=== PATIENT | female | born 2000 | race Hispanic/Latino ===

== ENCOUNTER 2022-02-04 20:00 | Emergency (ER) | payer MEDICAID, OTHER ==
[~2022-02-04] VITALS: Ht 154.9 cm; Wt 67.1 kg
[2022-02-04 20:53] LABS: APPEARANCE,URINE CLOUDY (CLEAR); BILIRUBIN,URINE NEGATIVE (NEGATIVE); COLOR,URINE LIGHT-YELLOW (YELLOW); GLUCOSE, URINE (UA) NEGATIVE (NEGATIVE); KETONES,URINE NEGATIVE (NEGATIVE); LEUKOCYTE ESTERASE ,URINE 500 Leu/uL (NEGATIVE); NITRATE,URINE NEGATIVE (NEGATIVE); OCCULT BLOOD,URINE NEGATIVE (NEGATIVE); PH,URINE 6.5 (5.0-8.0); PROTEIN,URINE NEGATIVE (NEGATIVE); UROBILINOGEN,URINE 0.2 mg/dL (0.2-1.0)
[2022-02-04 20:55] LABS: HCG,QUALITATIVE URINE NEGATIVE (NEGATIVE)
[2022-02-04 21:08] LABS: BACTERIA,URINE Moderate /HPF (None Seen); MUCUS,URINE Few LPF (None Seen); SQUAMOUS EPITHELIAL CELL,UR Moderate /HPF (0-2)
[2022-02-04 21:09] LABS: AMORPHOUS SEDIMENT,UR Moderate /LPF (None Seen)
[2022-02-04 23:21] VITALS: BP 120/52
[2022-02-04] MEDS ORDERED: CEPH500B PO (23:54)
== END 2022-02-05 | disposition home or self-care (01) ==
LOC: EDH 20:00
DX: N39.0 Urinary tract infection, site not specified (principal); M25.572 Pain in left ankle and joints of left foot; V49.49XA Driver injured in collision with other motor vehicles in traffic accident, initial encounter; Y93.9 Activity, unspecified; Y92.89 Other specified places as the place of occurrence of the external cause; Y99.8 Other external cause status
CPT/HCPCS: 73610; 81001; 81025; 87088

== ENCOUNTER 2022-06-11 20:45 | Emergency (ER) | payer OTHER ==
[~2022-06-11] VITALS: Ht 157.5 cm; Wt 68.9 kg
[~2022-06-11 20:45] MED LIST: CEPH500B PO
[2022-06-11] MEDS ORDERED: LORAZEPAM 2 MG/ML 1 ML VIAL IM ONE (22:00)
[2022-06-11 22:34] VITALS: BP 125/86
[2022-06-11] MEDS ORDERED: HYDR-3421 PO (23:03)
== END 2022-06-11 23:14 | disposition home or self-care (01) ==
LOC: EDH 20:45
DX: F41.9 Anxiety disorder, unspecified (principal); F41.0 Panic disorder [episodic paroxysmal anxiety]; Z88.8 Allergy status to other drugs, medicaments and biological substances; Z79.899 Other long term (current) drug therapy
CPT/HCPCS: 99283; 81025; 96372; J2060

== ENCOUNTER 2022-07-15 19:26 | Emergency (ER) | payer OTHER ==
[~2022-07-15] VITALS: Ht 157.5 cm; Wt 61.2 kg
[~2022-07-15 19:26] MED LIST changes: +HYDR-3421 PO
[2022-07-15 19:59] LABS: BASOPHILS % (AUTO) 0.3 % (0.0-5.0); EOSINOPHILS % (AUTO) 0.3 % (0.0-8.0); HEMATOCRIT 38.1 % (36-48); LYMPHOCYTES % (AUTO) 21.1 % (21.0-51.0); MEAN CORPUSCULAR HEMOGLOBIN 30.5 pg (27.0-33.0); MEAN CORPUSCULAR VOLUME 84.9 fL (79-99); MONOCYTES % (AUTO) 6.1 % (3.0-13.0); NEUTROPHILS % (AUTO) 71.9 % (40.0-77.0); PLATELET COUNT (AUTO) 315 K/uL (130-400); RED BLOOD CELL COUNT(AUTO) 4.49 MIL/uL (4.00-5.50); RED CELL DISTRIBUTION WIDTH 12.1 % (11.0-15.5)
[2022-07-15] MEDS ORDERED: 0.9%NACL 1000ML 1,000 ML IV ONE (20:30)
[2022-07-15] MEDS ORDERED: ONDANSETRON 4MG INJ IVP ONE (20:30)
[2022-07-15 20:37] LABS: APPEARANCE,URINE CLOUDY (CLEAR); BILIRUBIN,URINE NEGATIVE (NEGATIVE); COLOR,URINE YELLOW (YELLOW); GLUCOSE, URINE (UA) NEGATIVE (NEGATIVE); KETONES,URINE 60 mg/dL (NEGATIVE); LEUKOCYTE ESTERASE ,URINE 500 Leu/uL (NEGATIVE); NITRATE,URINE NEGATIVE (NEGATIVE); OCCULT BLOOD,URINE MODERATE (NEGATIVE); PROTEIN,URINE 30 mg/dL (NEGATIVE); UROBILINOGEN,URINE 0.2 mg/dL (0.2-1.0)
[2022-07-15 20:41] LABS: HCG,QUALITATIVE URINE NEGATIVE (NEGATIVE)
[2022-07-15 20:48] LABS: BACTERIA,URINE RARE /HPF (None Seen); MUCUS,URINE FEW LPF (None Seen); OTHER CASTS, URINE 1 /LPF (None Seen); RBC,URINE 26-50 /HPF (0-1); SQUAMOUS EPITHELIAL CELL,UR FEW /HPF (0-2); YEAST,URINE BUDDING FEW /HPF (None Seen)
[2022-07-15 20:59] LABS: ALBUMIN 3.9 g/dL (3.5-5.0); CREATININE 0.8 mg/dL (0.5-1.5); POTASSIUM 3.6 mmol/L (3.5-5.1); TOTAL PROTEIN, SERUM 8.5 g/dL (6.0-8.3)
[2022-07-15] MEDS ORDERED: CEFTRIAXONE 1G VIAL IVP ONE (21:00)
[2022-07-15] MEDS ORDERED: ACETAMINOPHEN 500 MG TABLET PO ONE (21:00)
[2022-07-15] MEDS ORDERED: ONDA4TAB10 PO (21:15)
[2022-07-15] MEDS ORDERED: SULF1TAB42 PO (21:15)
[2022-07-15 21:32] VITALS: BP 126/78
== END 2022-07-15 21:51 | disposition home or self-care (01) ==
LOC: EDH 19:36
DX: N39.0 Urinary tract infection, site not specified (principal); R11.0 Nausea; F41.9 Anxiety disorder, unspecified; Z20.822 Contact with and (suspected) exposure to COVID-19; Z88.8 Allergy status to other drugs, medicaments and biological substances; Z79.899 Other long term (current) drug therapy
CPT/HCPCS: 99284; 96374; 87635; 96361; 96375; 80053; 83690; 85025; 87088; 87880; 87804 ×2; 81001; 81025; 36415; C9803; J0696; J2405

== ENCOUNTER 2022-11-27 14:57 | Emergency (ER) | payer BC ==
[~2022-11-27] VITALS: Ht 157.5 cm; Wt 56.7 kg
[~2022-11-27 14:57] MED LIST changes: +ONDA4TAB10 PO; +SULF1TAB42 PO
[2022-11-27 14:58] VITALS: BP 118/54
[2022-11-27 15:27] LABS: APPEARANCE,URINE CLOUDY (CLEAR); BILIRUBIN,URINE NEGATIVE (NEGATIVE); COLOR,URINE LIGHT-YELLOW (YELLOW); GLUCOSE, URINE (UA) NEGATIVE (NEGATIVE); KETONES,URINE 10 mg/dL (NEGATIVE); LEUKOCYTE ESTERASE ,URINE 500 Leu/uL (NEGATIVE); NITRATE,URINE NEGATIVE (NEGATIVE); OCCULT BLOOD,URINE NEGATIVE (NEGATIVE); PROTEIN,URINE NEGATIVE (NEGATIVE); UROBILINOGEN,URINE 0.2 mg/dL (0.2-1.0)
[2022-11-27 15:31] LABS: HCG,QUALITATIVE URINE NEGATIVE (NEGATIVE)
[2022-11-27 15:33] LABS: BACTERIA,URINE MOD /HPF (None Seen); MUCUS,URINE RARE LPF (None Seen); OTHER CASTS, URINE 3 /LPF (None Seen); SQUAMOUS EPITHELIAL CELL,UR MOD /HPF (0-2)
[2022-11-27 15:47] LABS: BASOPHILS % (AUTO) 0.4 % (0.0-5.0); HEMATOCRIT 37.7 % (36-48); LYMPHOCYTES % (AUTO) 28.7 % (21.0-51.0); MEAN CORPUSCULAR HEMOGLOBIN 30.1 pg (27.0-33.0); MEAN CORPUSCULAR VOLUME 86.1 fL (79-99); MONOCYTES % (AUTO) 6.6 % (3.0-13.0); NEUTROPHILS % (AUTO) 61.1 % (40.0-77.0); PLATELET COUNT (AUTO) 362 K/uL (130-400); RED BLOOD CELL COUNT(AUTO) 4.38 MIL/uL (4.00-5.50); RED CELL DISTRIBUTION WIDTH 12.5 % (11.0-15.5); WHITE BLOOD COUNT (AUTO) 10.5 K/uL (4.8-10.8)
[2022-11-27 15:58] LABS: CREATININE 0.7 mg/dL (0.5-1.5); POTASSIUM 3.3 mmol/L (3.5-5.1)
[2022-11-27] MEDS ORDERED: METOCLOPRAMIDE 10 MG/2 ML VIAL IVP ONE (16:00)
[2022-11-27] MEDS ORDERED: LACTATED RINGERS 1000ML 1,000 ML IV ONE (16:00)
[2022-11-27 16:03] LABS: ALBUMIN 3.9 g/dL (3.5-5.0); TOTAL PROTEIN, SERUM 8.4 g/dL (6.0-8.3)
[2022-11-27] MEDS ORDERED: CEPHALEXIN 500 MG CAPSULE PO ONE (17:30)
[2022-11-27] MEDS ORDERED: CEPH500B PO (17:33)
[2022-11-27] MEDS ORDERED: PHEN-847 PO (17:34)
== END 2022-11-27 17:52 | disposition home or self-care (01) ==
LOC: EDH 14:57
DX: N39.0 Urinary tract infection, site not specified (principal); N83.291 Other ovarian cyst, right side; F41.9 Anxiety disorder, unspecified; Z79.899 Other long term (current) drug therapy; Z88.8 Allergy status to other drugs, medicaments and biological substances
CPT/HCPCS: 99284; 96374; 76856; 96361; 80053; 85025; 87088; 81001; 81025; 36415; J7120; J2765